=== PATIENT | female | born 1965 | race Caucasian/White ===

== ENCOUNTER 2019-03-10 18:30 | Emergency (ER) | payer BC ==
[2019-03-10 18:52] VITALS: BP 138/92
[2019-03-10] MEDS ORDERED: Lidocaine 2% VISCOUS* 15 ML UDC PO ONE (19:17)
--- NOTE | 2019-03-10 19:37 | UC ---
Dental HPI - HPI Summary HPI Summary: Patient's a 53-year-old female presents to urgent care with a syncopal. Patient had a root canal today on her #31 tooth. Patient states the procedure with medical this point. Patient states he was stage II of the procedure. Patient states the novocaine wore off around noon which he started having increased pain. Between noon and 3 she took ibuprofen as well as Tylenol. Patient also took 1 hydrocodone she had. Patient states she didn't have much relief called her dentist to prescribe naproxen. Patient took approximately around 5:00. Patient states she started to feel some improvement since that time but still has pain. Patient has a bad taste in her mouth. Denies any intraoral swelling. Patient states she has not had much to eat or drink she's afraid tooth. No nausea vomiting. Patient states typically she handles pain very well the stage I was not that bad. Patient's medications reviewed this visit. - History of Current Complaint Chief Complaint: UCDentalProblem Stated Complaint: TOOTH ACHE Time Seen by Provider: 03/10/19 18:51 Hx Obtained From: Patient Hx Last Menstrual Period: 06/03/16 Pain Intensity: 9 - Allergies/Home Medications Allergies/Adverse Reactions: Allergies Allergy/AdvReac Type Severity Reaction Status Date / Time No Known Allergies Allergy Verified 03/10/19 18:52 Home Medications: Home Medications Acetaminophen [Tylenol] 500 mg PO ONCE PRN 03/10/19 [History Confirmed 03/10/19] Hydrocodone/Acetaminophen [Hydrocodone/Acetaminophen 5-325 mg] 1 tab PO ONCE PRN 03/10/19 [History Confirmed 03/10/19] Ibuprofen TAB* [Advil TAB*] 600 mg PO ONCE PRN 03/10/19 [History Confirmed 03/10] Linaclotide [Linzess] 145 mcg PO DAILY 03/10/19 [History Confirmed 03/10/19] Naproxen Sodium [Naproxen 550 mg tab] 550 mg PO BID PRN 03/10/19 [History Confirmed 03/10/19] Venlafaxine TAB (NF) [Effexor TAB (NF)] 200 mg PO DAILY 03/10/19 [History Confirmed 03/10/19] PMH/Surg Hx/FS Hx/Imm Hx Previously Healthy: Yes - Surgical History Surgical History: Yes Surgery Procedure, Year, and Place: THYROIDECTOMY 2009. Tubal ligation - Family History Known Family History: Positive: Hypertension, Diabetes, Other - positive for Breast CA - Social History Lives: With Family Alcohol Use: Weekly Alcohol Amount: Glass of wine/night Substance Use Type: None Smoking Status (MU): Never Smoked Tobacco Review of Systems All Other Systems Reviewed And Are Negative: Yes Constitutional: Positive: Negative Skin: Positive: Negative ENT: Positive: Dental Pain Is Patient Immunocompromised?: No Physical Exam - Summary Physical Exam Summary: Vital Signs Reviewed: Yes A+Ox3, obvious discomfort, holding ice to face Eyes: Conjunctiva Clear CHERISE, EOM intact ENT: Hearing grossly normal , TM x 2 clear no fluid, no erythema #31 tooth + TTP no erythema, wounds mild edema at gumline, n odifficulty with secretions neck: supple Respiratory: Positive: No respiratory distress, No accessory muscle use Cardiovascular: skin color reflect adequate perfusion Musculoskeletal Exam: GARBER x 4 without difficulty Neurological: Positive: Alert, ambulatory without difficulty Psychological: Positive: Normal Response To proivder Skin: Positive: no rash, no ecchymosis Triage Information Reviewed: Yes Vital Signs: Initial Vital Signs Temp 98.7 F 03/10/19 18:47 Pulse 66 03/10/19 18:47 Resp 16 03/10/19 18:47 BP 138/92 03/10/19 18:47 Pulse Ox 100 03/10/19 18:47 Re-Evaluation - Re-Evaluation First Eval Re-Evaluation Time: 19:28 Comment: Patient with marked improvement of symptoms following up with patient a 5 mL of viscous lidocaine. We'll discharge with a prescription for lidocaine as well as Percocet. Strict precautions with Percocet given. Patient and significant other in agreement with plan. Dental Complaint Course/Dx - Course Course Of Treatment: Patient presents to urgent care for evaluation of pain in her right lower tooth after having stage II canal today. Patient states when the block wear off around noon pain intensified. Patient's taken qbyx-sis-rquhekg medications as well as naproxen little improvement. Patient took 1 hydrocodone 2 left over the did not help. Patient states she feels now that the naproxen she took at around 5:00 is starting to improve. On exam vital signs are stable. Patient with obvious discomfort in her right jaw. Patient with mild edema and tenderness to #31 tooth. Discussed with patient treatment options at length. We'll try some viscous lidocaine. We'll also a short course of Percocet. Recommend patient follow up with her dentist tomorrow. Patient is uncontrolled. Patient comfortable in agreement with plan. - Differential Dx/Diagnosis Provider Diagnosis: Pain, dental Discharge - Sign-Out/Discharge Documenting (check all that apply): Patient Departure All imaging exams completed and their final reports reviewed: No Studies - Discharge Plan Condition: Stable Disposition: HOME Prescriptions: Lidocaine 2% VISCOUS* 5 ml TOPICAL Q4HR PRN #100 ml PRN Reason: dental pain oxyCODONE/Acetamin 5/325 MG* [Percocet 5/325 TAB*] 1 - 2 tab PO Q6H PRN #15 tab MDD 8 PRN Reason: severe dental pain Patient Education Materials: Toothache (ED) Referrals: Eligio Latif MD [Primary Care Provider] - Additional Instructions: - Take naproxyn as prescribed by your dentist - do not take ibuprofen (Motrin, Advil) while taking this medication - Okay to take a tylenol product (2 tylenol tablets, 2 percocet tablets, 1 tylenol + 1 percocet) every 6 hours for pain. Percocet is a narcotic- do NOT drive, operate machinery, drink alcohol while taking percocet. This medicatin may cause constipation - use a stool softner as prescribed - apply ice to the outside of your cheek - contact your dentist tomorrow if pain persists. If your pain is uncontrolled or your have other concerns it is recommended you go to the emergency department for further evaluation and treatment - Billing Disposition and Condition Condition: STABLE Disposition: Home
== END 2019-03-10 19:45 | disposition home or self-care (01) ==
LOC: UCEAST 18:30
DX: K08.89 Other specified disorders of teeth and supporting structures (principal)
CPT/HCPCS: 99212; G0463

== ENCOUNTER 2019-03-16 08:08 | Emergency (ER) | payer BC ==
[2019-03-16 08:17] VITALS: BP 123/90
[2019-03-16] MEDS ORDERED: Ketorolac INJ* 30 MG/ML 1 ML VIAL IM ONE (08:39)
--- NOTE | 2019-03-16 08:43 | UC ---
Dental HPI - HPI Summary HPI Summary: 53 yo female has had three dental procedures to right lower molar in past 2-3 weeks first and second visits -root canal third visit was 4 days ago and for a root canal is currently on amoxil no f/c has had pain right TMJ region x 2 days unable to open mouth as far a normal unable to chew with out pain area around dental work does not feel swollen - History of Current Complaint Chief Complaint: UCDentalProblem Stated Complaint: TOOTH PAIN Time Seen by Provider: 03/16/19 08:20 Hx Obtained From: Patient Hx Last Menstrual Period: 06/03/16 Onset/Duration: Gradual Onset, Lasting Days Pain Intensity: 7 Pain Scale Used: 0-10 Numeric Aggravating Factor(s): Chewing - Allergies/Home Medications Allergies/Adverse Reactions: Allergies Allergy/AdvReac Type Severity Reaction Status Date / Time No Known Allergies Allergy Verified 03/10/19 18:52 Home Medications: Home Medications Amoxicillin PO (*) [Amoxicillin 500 MG CAP*] 500 mg PO TID 03/16/19 [History Confirmed 03/16/19] PMH/Surg Hx/FS Hx/Imm Hx Previously Healthy: Yes - Surgical History Surgical History: Yes Surgery Procedure, Year, and Place: THYROIDECTOMY 2009. Tubal ligation - Family History Known Family History: Positive: Hypertension, Diabetes, Other - positive for Breast CA - Social History Alcohol Use: Weekly Alcohol Amount: Glass of wine/night Substance Use Type: None Smoking Status (MU): Never Smoked Tobacco Review of Systems All Other Systems Reviewed And Are Negative: Yes Constitutional: Positive: Negative Skin: Positive: Negative Eyes: Positive: Negative ENT: Positive: Dental Pain Respiratory: Positive: Negative Cardiovascular: Positive: Negative Gastrointestinal: Positive: Negative Genitourinary: Positive: Negative Motor: Positive: Negative Neurovascular: Positive: Negative Musculoskeletal: Positive: Negative Physical Exam Triage Information Reviewed: Yes Appearance: Well-Appearing, No Pain Distress, Well-Nourished Vital Signs: Initial Vital Signs Temp 98.7 F 03/16/19 08:13 Pulse 69 03/16/19 08:13 Resp 16 03/16/19 08:13 BP 123/90 03/16/19 08:13 Pulse Ox 100 03/16/19 08:13 Vital Signs Reviewed: Yes Eyes: Positive: Conjunctiva Clear ENT Exam: Normal ENT: Positive: Hearing grossly normal, Other - Right TMJ tenderness. Negative: Nasal congestion, Nasal drainage, Tonsillar swelling, Tonsillar exudate, Sinus tenderness, Uvula midline Dental: Positive: Other: - cap noted, no redness,abscess noted Neck exam: Normal Neck: Positive: Supple, Nontender, No Lymphadenopathy Respiratory: Positive: Lungs clear, Normal breath sounds, No respiratory distress Cardiovascular: Positive: RRR, No Murmur Musculoskeletal: Positive: ROM Intact, No Edema Neurological: Positive: Alert Psychological Exam: Normal Skin Exam: Normal - Additional Comments no intra oral or facial swelling noted Dental Complaint Course/Dx - Differential Dx/Diagnosis Provider Diagnosis: TMJ tenderness, right Discharge - Sign-Out/Discharge Documenting (check all that apply): Patient Departure All imaging exams completed and their final reports reviewed: No Studies - Discharge Plan Condition: Stable Disposition: HOME Patient Education Materials: Temporomandibular Disorder (ED) Referrals: Eligio Latif MD [Primary Care Provider] - 2 Weeks (BP recheck in 2-12 weeks) Additional Instructions: ice packs to right TMJ region soft, no chew diet continue naproxen see your dentist first available appt - Billing Disposition and Condition Condition: STABLE Disposition: Home
== END 2019-03-16 09:09 | disposition home or self-care (01) ==
LOC: UCEAST 08:08
DX: R68.84 Jaw pain (principal)
CPT/HCPCS: 96372; 99211; G0463; J1885

== ENCOUNTER 2019-08-11 21:31 | Emergency (ER) | payer BC ==
[2019-08-11 21:36] VITALS: BP 148/106
[2019-08-11] MEDS ORDERED: HYDROcodone/ACETAMIN 5-325 MG* 1 TAB PO ONE ×2 (22:08→22:50)
[2019-08-11] MEDS ORDERED: cefTRIAXone VIAL(*) 1,000 MG VIAL IM ONE (22:08)
[2019-08-11] MEDS ORDERED: Lidocaine 1% MPF ** 5 ML VIAL INJ ONE (22:09)
--- NOTE | 2019-08-11 22:14 | UC ---
UC Dental HPI - HPI Summary HPI Summary: 54-year-old woman comes in with a chief complaint of dental pain. Patient had a root down the left lower molar area. During the day the pain started getting worse. She was able to get a hold of her dentist to started her on penicillin. Pain is been increasing in intensity. She took ibuprofen 2 hours ago and took an oxycodone 4 hours ago. It does not appear to be helping with the pain. - History of Current Complaint Chief Complaint: UCDentalProblem Stated Complaint: DENTAL Time Seen by Provider: 08/11/19 21:56 Hx Last Menstrual Period: 06/03/16 Pain Intensity: 10 - Allergies/Home Medications Allergies/Adverse Reactions: Allergies Allergy/AdvReac Type Severity Reaction Status Date / Time No Known Allergies Allergy Verified 08/11/19 21:36 Home Medications: Home Medications Acetaminophen TAB* [Tylenol TAB*] 650 mg PO PRN 08/11/19 [History] Ibuprofen TAB* [Advil TAB*] 800 mg PO Q6H PRN 08/11/19 [History Confirmed ] Penicillin VK TAB* [Penicillin VK 250 mg Tab*] 500 mg PO QID 08/11/19 [History Confirmed 08/11/19] Tylenol With Codeine* 1 tab PO PRN 08/11/19 [History] PMH/Surg Hx/FS Hx/Imm Hx Previously Healthy: Yes Endocrine History: Hypothyroidism - Surgical History Surgical History: Yes Surgery Procedure, Year, and Place: THYROIDECTOMY 2009. Tubal ligation - Family History Known Family History: Positive: Hypertension, Diabetes, Other - positive for Breast CA - Social History Alcohol Use: None Alcohol Amount: Glass of wine/night Substance Use Type: None Smoking Status (MU): Never Smoked Tobacco Review of Systems All Other Systems Reviewed And Are Negative: Yes Constitutional: Positive: Other - SEE HPI Skin: Positive: Negative Eyes: Positive: Negative ENT: Positive: Dental Pain Respiratory: Positive: Negative Cardiovascular: Positive: Negative Gastrointestinal: Positive: Negative Motor: Positive: Negative Neurovascular: Positive: Negative Musculoskeletal: Positive: Negative Neurological: Positive: Negative Psychological: Positive: Negative Is Patient Immunocompromised?: No Physical Exam Triage Information Reviewed: Yes Appearance: Well-Appearing, Well-Nourished, Pain Distress - MODERATE Vital Signs: Initial Vital Signs Temp 97 F 08/11/19 21:32 Pulse 75 08/11/19 21:32 Resp 24 08/11/19 21:32 BP 148/106 08/11/19 21:32 Pulse Ox 97 08/11/19 21:32 Vital Signs Reviewed: Yes Eye Exam: Normal Eyes: Positive: Conjunctiva Clear ENT: Positive: Other - Pharynx is open Dental: Positive: Other: - The left lower molar area there is an open socket. Neck: Positive: Supple Respiratory: Positive: Lungs clear, Normal breath sounds, No respiratory distress Cardiovascular: Positive: RRR Musculoskeletal: Positive: Strength Intact, ROM Intact Neurological: Positive: Alert, Muscle Tone Normal Psychological: Positive: Normal Response To Family, Age Appropriate Behavior Skin Exam: Normal Dental Complaint Course/Dx - Course Course Of Treatment: In clinic patient was given [place] 5/325 2 tablets and also Rocephin 1 g IM. The [place] didn't appear to help with the pain. About 2 hours prior to arrival patient had are taken ibuprofen 800 mg by mouth therefore we were unable to give her a nonsteroidal anti-inflammatory for pain. She had had a Percocet 4 hours prior therefore we were able to give her 2 [place] safely. Discharged home with a total of 6 [place] to be taken 1-2 every 4 hours as needed. Patient will continue her penicillin as directed by her dentist. I did write a prescription for more Percocet. Patient will follow-up with her dentist. If patient has a hard time getting the pain under control or if she has signs of infection or feels ill or has any other concerns patient should go to the emergency department. - Differential Dx/Diagnosis Provider Diagnosis: Toothache Discharge ED - Sign-Out/Discharge Documenting (check all that apply): Patient Departure All imaging exams completed and their final reports reviewed: No Studies - Discharge Plan Condition: Stable Disposition: HOME Prescriptions: oxyCODONE TAB* [Roxycodone TAB 5 mg*] 5 mg PO Q4H PRN #20 tab MDD 6 PRN Reason: Pain - Moderate Patient Education Materials: Toothache (ED) Referrals: Eligio Latif MD [Primary Care Provider] - Additional Instructions: FOLLOW UP WITH YOUR DENTIST. GET REEVALUATED SOONER IF NOT IMPROVED OR WORSE OR ANY QUESTIONS OR CONCERNS. - Billing Disposition and Condition Condition: STABLE Disposition: Home
== END 2019-08-11 23:10 | disposition home or self-care (01) ==
LOC: UCEAST 21:31
DX: K08.89 Other specified disorders of teeth and supporting structures (principal)
CPT/HCPCS: 96372; 99212; G0463; J0696